=== PATIENT | male | born 1980 | race Caucasian/White ===

== ENCOUNTER → 2016-07-31 | Outpatient (CLI) | payer OTHER ==
[2015-04-24 04:30] VITALS: BP 123/83
--- NOTE | 2016-07-31 11:00 | KCIC ---
PROCEDURE MR of the right elbow HISTORY Right elbow pain. Acute pain and swelling since February 2016. No known injury. COMPARISON None TECHNIQUE Standard noncontrast images are obtained. FINDINGS The biceps and brachialis tendons are intact. Triceps tendon intact. Common flexor tendon intact. Ulnar collateral ligament is intact. Mild common extensor tendinosis with some increased signal but no measurable tear or defect. The radial collateral ligament and lateral ulnar collateral ligament are intact. No bone lesion or acute fracture. No significant joint effusion. Ulnar collateral ligament is intact. No acute muscle pathology. IMPRESSION Mild common extensor tendinosis. Electronically signed by: Juan C Barbosa MD (Jul 31, 2016 10:58:16)
== END | disposition home or self-care (01) ==
LOC: KCIC MRI 08:00
PROVIDERS: ATTEND Family Medicine
DX: M25.521 Pain in right elbow (principal)
CPT/HCPCS: 73221